=== PATIENT | male | born 1960 | race African-American/Black ===

== ENCOUNTER 2016-07-31 17:49 | Emergency (ER) | payer MEDICAID ==
[~2016-07-31] VITALS: Ht 185.4 cm; Wt 97.7 kg
[2016-07-31 17:54] VITALS: BP 178/86
[2016-07-31] MEDS ORDERED: INDOMETHACIN 50 MG CAPSULE PO ONE (18:30)
[2016-07-31] MEDS ORDERED: INDOMETHACIN 50 MG CAPSULE ONE (18:30)
[2016-07-31] MEDS ORDERED: KETOROLAC 30 MG/1 ML ONE (19:12)
[2016-07-31] MEDS ORDERED: KETOROLAC 30 MG/1 ML IM ONE (19:30)
== END 2016-07-31 19:23 | disposition home or self-care (01) ==
LOC: ED 18:21
DX: M1A.0710 Idiopathic chronic gout, right ankle and foot, without tophus (tophi) (principal); M1A.0610 Idiopathic chronic gout, right knee, without tophus (tophi); I10 Essential (primary) hypertension; M54.30 Sciatica, unspecified side; F17.200 Nicotine dependence, unspecified, uncomplicated; Z90.49 Acquired absence of other specified parts of digestive tract
CPT/HCPCS: 73564; 96372; 99284; J1885; J7512